=== PATIENT | male | born 1990 | race Caucasian/White ===

== ENCOUNTER 2016-08-14 16:18 | Emergency (ER) | payer MEDICAID ==
[~2016-08-14] VITALS: Ht 170.2 cm; Wt 136.1 kg
[2016-08-14 16:18] VITALS: BP_SYST 164
--- NOTE | 2016-08-14 16:18 | NUR ---
PATIENT BROUGHT IN BY AMBULANCE. [facility] TRANSPORT TO BED 7. REPORT GIVEN TO PATTI BRICEÑO
--- NOTE | 2016-08-14 16:20 | NUR ---
ER at bedside examining patient.
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
--- NOTE | 2016-08-14 17:16 | NUR ---
Pt back from CT
--- NOTE | 2016-08-14 17:17 | NUR ---
at bedside interviewing patient
[2016-08-14] MEDS ORDERED: LORazepam 2 MG/ML VIAL (FOR ER USE) IM ONE (17:45)
[2016-08-14] MEDS ORDERED: KETOROLAC TROMETHAMINE 60 MG/2 ML VIAL IM ONE (17:45)
[2016-08-14 18:10] VITALS: BP_SYST 134
--- NOTE | 2016-08-14 18:10 | NUR ---
Patient given written and verbal discharge instructions and verbalizes understanding. ER MD LEDBETTER discussed with patient the results and treatment provided. Patient in stable condition. ID arm band removed. Rx of IBUPROFEN 600 given. Patient educated on pain management and to follow up with PMD. Pain Scale 2/10. Opportunity for questions provided and answered.
== END 2016-08-14 18:10 | disposition home or self-care (01) ==
LOC: SED 16:18
DX: S16.1XXA Strain of muscle, fascia and tendon at neck level, initial encounter (principal); S20.219A Contusion of unspecified front wall of thorax, initial encounter; Z88.0 Allergy status to penicillin; V49.9XXA Car occupant (driver) (passenger) injured in unspecified traffic accident, initial encounter; Y93.89 Activity, other specified; Y92.488 Other paved roadways as the place of occurrence of the external cause; Y99.8 Other external cause status
CPT/HCPCS: 70450; 71010; 72125; 96372; 99284; J1885; J2060

== ENCOUNTER 2016-10-19 18:27 | Emergency (ER) | payer MEDICAID ==
[~2016-10-19] VITALS: Ht 177.8 cm; Wt 133.8 kg
[2016-10-19 18:33] VITALS: BP_SYST 137
[2016-10-19] MEDS ORDERED: IBUPROFEN 800 MG TABLET PO ONE (19:45)
[2016-10-19 19:53] VITALS: BP_SYST 137
== END 2016-10-19 19:53 | disposition home or self-care (01) ==
LOC: SED 18:27
DX: H66.92 Otitis media, unspecified, left ear (principal); Z88.0 Allergy status to penicillin
CPT/HCPCS: 99283

== ENCOUNTER 2017-04-12 18:57 | Emergency (ER) | payer MEDICAID ==
[~2017-04-12] VITALS: Ht 177.8 cm; Wt 133.8 kg
[2017-04-12 19:00] VITALS: BP_SYST 131
--- NOTE | 2017-04-12 19:00 | NUR ---
Patient to ER bed 4 to gown for evaluation. Side rails up.
--- NOTE | 2017-04-12 19:10 | NUR ---
ptin bed 4with complaints of sore throat x 1 week with fever. Irma Ma aware.
[2017-04-12] MEDS ORDERED: KETOROLAC TROMETHAMINE 60 MG/2 ML VIAL IM ONE (19:30)
[2017-04-12] MEDS ORDERED: DEXAMETHASONE SOD PHOSPHATE 10 MG/ML VIAL IM ONE (19:30)
--- NOTE | 2017-04-12 19:32 | NUR ---
HARINDER Ma LOAN REVIEW ANALYST at bedside examining patient.
[2017-04-12 20:35] VITALS: BP_SYST 128
--- NOTE | 2017-04-12 20:35 | NUR ---
Patient given written and verbal discharge instructions and verbalizes understanding. ER MD discussed with patient the results and treatment provided. Patient in stable condition. ID arm band removed. Rx of MOTRIN,CEPACOL,PREDNISONE given. Patient educated on pain management and to follow up with PMD. Pain Scale 0/10. Opportunity for questions provided and answered.
== END 2017-04-12 20:35 | disposition home or self-care (01) ==
LOC: SED 18:57
DX: J02.8 Acute pharyngitis due to other specified organisms (principal); B97.89 Other viral agents as the cause of diseases classified elsewhere; R03.0 Elevated blood-pressure reading, without diagnosis of hypertension; Z88.0 Allergy status to penicillin
CPT/HCPCS: 36415; 86403; 87081; 96372; 99284; J1100; J1885